=== PATIENT | female | born 1955 | race Caucasian/White ===

== ENCOUNTER → 2020-06-25 13:34 | Outpatient (CLI) | payer BC, SELFPAY ==
--- NOTE | ~2020-06-25 | XR_ITS ---
EXAMINATION: XR foot LT min 3V EXAM DATE: 06/25/2020 13:49 INDICATION: Left foot pain/swelling. No known injury. TECHNIQUE: Left foot dorsoplantar, lateral and oblique projections obtained and reviewed. There is n o prior study for comparison. FINDINGS: Left metatarsal bones unremarkable. There are no acute fractures or dislocations identifi ed. There is no subcutaneous gas. The soft tissue is unremarkable. There are no radiopaque foreig n bodies. IMPRESSION: Unremarkable left foot exam. Reviewed, dictated and finalized at location B. ERTING TECHNICIAN
== END ==
PROVIDERS: PCP Family Medicine Adolescent Medicine; Visit Provider Physician Assistant
DX: M79.672 Pain in left foot (principal); M79.89 Other specified soft tissue disorders
CPT/HCPCS: 73630

== ENCOUNTER → 2020-10-02 07:16 | Outpatient (CLI) | payer BC, SELFPAY ==
--- NOTE | ~2020-10-02 | XR_ITS ---
EXAMINATION: XR foot LT min 3V DATE: 10/02/2020 08:05 INDICATION: Left foot injury and pain. TECHNIQUE: 4 views of left foot were obtained. COMPARISON: Left foot radiographs 06/25/2020 FINDINGS: There is a comminuted fracture of distal diaphysis of fifth metatarsal. The main distal fra cture fragment demonstrates 3 mm medial displacement. There is chronic mild flattening of head of sec ond metatarsal, consistent with osteonecrosis (Freiberg's infraction). There is mild osteoarthritis o f first metatarsophalangeal joint and some of the interphalangeal joints. There is an enthesophyte at plantar aspect of calcaneal tuberosity. IMPRESSION: 1. Comminuted fracture of distal diaphysis of fifth metatarsal. 2. Mild polyarticular osteoarthritis. Reviewed, dictated and finalized at location B.
== END ==
PROVIDERS: PCP Family Medicine Adolescent Medicine; Visit Provider Family Medicine Adolescent Medicine
DX: M19.072 Primary osteoarthritis, left ankle and foot (principal)
CPT/HCPCS: 73630

== ENCOUNTER 2020-10-11 08:56 | Outpatient (CLI) | payer BC, SELFPAY ==
--- NOTE | ~2020-10-11 | DEXA_ITS ---
Bone Density Report Name: Kena Lim Age: 65 Sex: Female Ethnicity: White Date of : 1955 Indication: postmenopausal; height loss; prior fracture; Referring Provider: BAKARI BRAVO Study: Bone densitometry was performed. Exam Date: October 11, 2020 Accession number: [id number] Bone Density: Region BMD T-score Z-score Classification AP Spine (L1-L4) 0.867 -1.6 0.0 Osteopenia Femoral Neck (Left) 0.823 -0.2 1.2 Normal Total Hip (Left) 0.917 -0.2 0.9 Normal Total Hip Bilateral Avg 0.914 -0.3 0.8 Normal Femoral Neck (Right) 0.787 -0.6 0.9 Normal Total Hip (Right) 0.910 -0.3 0.8 Normal World Health Organization criteria for BMD impression classify patients as: Normal (T-score at or above -1.0), Osteopenia (T-score between -1.0 and -2.5), or Osteoporosis (T-score at or below -2.5). 10-year Fracture Risk(1): Major Osteoporotic Fracture 11% Hip Fracture 0.5% Reported Risk Factors: [place] (), Neck BMD=0.787, BMI=33.1, previous fracture (1) FRAX(R) Version 3.08. Fracture probability calculated for an untreated patient. Fracture probability may be lower if the patient has received treatment. Clinical Information Provided by Patient: Has had a low trauma fracture Patient maximum height was 67 Menopause Age: 52 No regular weight bearing exercise Drinks caffeinated beverages Onset of menses at age 17 Number of children 1 Impression: The patient has low bone mass, based on the Total Spine T-score. The patient has an estimated ten-year risk of hip fracture of 0.5% and an estimated ten-year risk of major fracture of 11%, based on the WHO FRAX algorithm. The patient has risk factors, including: previous fracture. Discussion: BONE DENSITY IS LOW AT ONE OR MORE SKELETAL SITES. This patient's lowest T-score is low at one or more skeletal sites. It meets the World Health Organization's (WHO) criteria for ?low bone mass? (T-score between -1.0 and -2.5). The patient's 10-year risk of fracture as calculated by FRAX is less than the threshold where pharmacological therapy is recommended by the National Osteoporosis Foundation (NOF). However, all treatment decisions require clinical judgment and consideration of individual patient factors, including patient preferences, comorbidities, previous drug use, risk factors not captured in the FRAX model (e.g., frailty, falls, vitamin D deficiency, increased bone turnover, interval significant decline in bone density) and possible under or overestimation of fracture risk by FRAX. The patient should follow a healthful lifestyle (good nutrition with adequate calcium and vitamin D, and appropriate weight-bearing exercise). Follow-Up: Consider repeating this study in 2 to 3 years to reassess this patient's status, or sooner if there is some new clinical indication.
== END 2020-10-11 08:57 | disposition home or self-care (01) ==
PROVIDERS: PCP Family Medicine Adolescent Medicine; Visit Provider Orthopaedic Surgery
DX: M81.0 Age-related osteoporosis without current pathological fracture (principal); M85.88 Other specified disorders of bone density and structure, other site; Z78.0 Asymptomatic menopausal state
CPT/HCPCS: 77080

== ENCOUNTER 2021-06-05 10:35 | Outpatient (RCR) | payer BC, SELFPAY ==
[2021-06-05] MEDS: ACETAMINOPHEN 325 MG TABLET 650 MG PO (11:53)
[2021-06-05] MEDS: diphenhydrAMINE HCl CAP 25 MG CAPSULE PO (11:53)
[2021-06-05] MEDS: FAMOTIDINE 20 MG TABLET PO (11:53)
[2021-06-05 11:56] VITALS: BP 110/63; PULSE 92; RESP 20; TEMP 35.7; O2SAT 98
[2021-06-05 13:19] VITALS: BP 96/74
--- NOTE | 2021-06-06 09:43 | PC.NURSE ---
Called Ms Lim and she stated she is doing better, still fatigue and she said she is breathing better, and overall feels that the treatment helped her. She has no other questions at this time.
== END 2021-06-05 16:00 ==
LOC: AMCINF 10:35
PROVIDERS: PCP Family Medicine Adolescent Medicine; Visit Provider Internal Medicine Hematology & Oncology
DX: U07.1 COVID-19 (principal); E11.9 Type 2 diabetes mellitus without complications
CPT/HCPCS: A9270; M0245; Q0245

== ENCOUNTER 2025-06-06 08:54 | Outpatient (CLI) | payer BC, SELFPAY ==
--- NOTE | ~2025-06-06 | DEXA_ITS ---
Bone Density Report Name: FABRICE POWELL Age: 69 Sex: Female Ethnicity: White Date of : 1955 Indication: postmenopausal; screening for osteoporosis; height loss; rheumatoid arthritis; Referring Provider: JOCELYNN LUNA Study: Bone densitometry was performed. Exam Date: June 06, 2025 Accession number: [id number] Bone Density: Region BMD T-score Z-score Classification AP Spine(L1-L4) 0.790 -2.3 -0.4 Osteopenia Femoral Neck (Left) 0.754 -0.9 0.8 Normal Total Hip (Left) 0.903 -0.3 1.1 Normal Femoral Neck (Right) 0.698 -1.4 0.3 Osteopenia Total Hip (Right) 0.953 0.1 1.5 Normal Femoral Neck Mean 0.726 -1.1 0.6 Osteopenia Total Hip Mean 0.928 -0.1 1.3 Normal World Health Organization criteria for BMD impression classify patients as: Normal (T-score at or above -1.0), Osteopenia (T-score between -1.0 and -2.5), or Osteoporosis (T-score at or below -2.5). 10-year Fracture Risk(1): Major Osteoporotic Fracture 11% Hip Fracture 1.3% Reported Risk Factors: [place] (), Neck BMD=0.698, BMI=30.8, rheumatoid arthritis (1) FRAX(R) Version 3.08. Fracture probability calculated for an untreated patient. Fracture probability may be lower if the patient has received treatment. Clinical Information Provided by Patient: Has rheumatoid arthritis Has used the following medications: Vitamin D Patient maximum height was 67 Menopause Age: 69 No regular weight bearing exercise Drinks caffeinated beverages Onset of menses at age 17 Number of children 1 Impression: The patient has low bone mass, based on the Total Spine T-score. Discussion: BONE DENSITY IS LOW AT ONE OR MORE SKELETAL SITES. This patient's lowest T-score is low at one or more skeletal sites. It meets the World Health Organization's (WHO) criteria for ?low bone mass? (T-score between -1.0 and -2.5). The patient's 10-year risk of fracture as calculated by FRAX is less than the threshold where pharmacological therapy is recommended by the National Osteoporosis Foundation (NOF). However, all treatment decisions require clinical judgment and consideration of individual patient factors, including patient preferences, comorbidities, previous drug use, risk factors not captured in the FRAX model (e.g., frailty, falls, vitamin D deficiency, increased bone turnover, interval significant decline in bone density) and possible under or overestimation of fracture risk by FRAX. The patient should follow a healthful lifestyle (good nutrition with adequate calcium and vitamin D, and appropriate weight-bearing exercise). Follow-Up: Consider repeating this study in 2 to 3 years to reassess this patient's status, or sooner if there is some new clinical indication. Reported by: JOSE A on 06/06/2025 9:35:00 AM. Reviewed, dictated and finalized at location A.
== END 2025-06-06 08:55 | disposition home or self-care (01) ==
PROVIDERS: PCP Family Medicine Adolescent Medicine; Visit Provider Family Medicine Adolescent Medicine
DX: Z78.0 Asymptomatic menopausal state (principal); M85.89 Other specified disorders of bone density and structure, multiple sites
CPT/HCPCS: 77080